=== PATIENT | male | born 1970 | race Caucasian/White ===

== ENCOUNTER 2023-11-04 10:32 | Emergency (ER) | payer MEDICARE, SELFPAY ==
[2023-11-04 10:32] VITALS: BP 155/102; BP 161/105; PULSE 123; PULSE 132; RESP 14; RESP 18; TEMP 36.3; O2SAT 98; BMI 46.6
--- NOTE | 2023-11-04 10:49 | NURSING ---
NO OLD EKGS
--- NOTE | 2023-11-04 11:00 | EKG12_ITS ---
Test Reason : Blood Pressure : / mmHG Vent. Rate : 110 BPM Atrial Rate : 110 BPM P-R Int : 122 ms QRS Dur : 082 ms QT Int : 324 ms P-R-T Axes : 067 082 085 degrees
--- NOTE | 2023-11-04 11:05 | RAD_ITS ---
STUDY: X-RAY CHEST REASON FOR EXAM: Male, 53 years old. Chest pain TECHNIQUE: Single AP portable view of the chest. COMPARISON: None. FINDINGS: EKG electrodes are seen. Hyperinflation. The lungs are clear. There is blunting of the right cardiac phrenic angle. Normal size heart. Normal mediastinum and tonya. Normal visualized pulmonary arteries. Normal visualized aortic arch and descending thoracic aorta. Normal visualized thoracic spine. Normal visualized ribs, clavicles, and shoulders. There is no demonstrated abnormality of the visualized soft tissue structures of the upper abdomen. RAD/Chest 1 View (Portable) IMPRESSION: Hyperinflation. Blunting of the right costophrenic angle. Electronically Signed: Javier Starr MD at 11:25 EDT ,
[2023-11-04 11:07] LABS: Absolute Lymphocyte Count 2.34 X10^3/uL (0.83-4.51); Absolute Neutrophil Count 6.4 X10^3/uL (2.0-7.7); Basophil# 0.03 X10^3/uL; Basophil% 0.3 % (0-1); Eosinophil# 0.05 X10^3/uL; Eosinophils% 0.5 % (0-5); Hematocrit 45.2 % (40-54); Hemoglobin 15.5 g/dL (13.0-16.5); Lymphocyte # 2.34 X10^3/ul (0.83-4.51); Lymphocyte % 23.3 % (19-41); Mean Corp Hgb Conc 34.3 g/dL (32-36); Mean Corpuscular Hgb 32.1 pg (27.0-32.0); Mean Corpuscular Volume 93.6 fL (80-94); Mean Platelet Vol. 8.4 fl (6.2-12.0); Monocyte# 1.17 X10^3/uL; Monocyte% 11.7 % (0-10); NRBC Flagged by Analyzer 0 % (0-5); Neutrophil # 6.41 X10^3/uL (2.7-7.7); Neutrophil % 63.9 % (47-70); Platelet Count 207 K/mm3 (150-450); RBC Distribution Width CV 12.3 % (11.6-14.6); RBC Distribution Width SD 42.6 fl (35.1-43.9); Red Blood Count 4.83 M/mm3 (4.6-6.2)
--- NOTE | 2023-11-04 11:20 | EX.ED.DYSGE1 ---
HPI History of Present Illness Chief Complaint: Hypertension PFSH PFSH Allergy/AdvReac Type Severity Reaction Status Date / Time No Known Allergies Allergy Verified 11/04/23 10:33 Social History Smoking Status: Never smoker EXAM Physical Exam Const Vital Signs: 11/04/23 10:32 11/04/23 10:32 11/04/23 10:47 Temperature 97.3 F L Temperature Source Temporal Pulse Rate 132 H 123 H Respiratory Rate 14 18 Blood Pressure 155/102 H 161/105 H Blood Pressure Mean 119 123 Pulse Ox 98 98 Oxygen Delivery Method Room Air Room Air Room Air MDM MDM Lab Data Labs: Laboratory Results - last 24 hr 11/04/23 10:50 WBC 10.0 RBC 4.83 Hgb 15.5 Hct 45.2 MCV 93.6 MCH 32.1 H MCHC 34.3 RDW Std Deviation 42.6 RDW Coeff of Hilary 12.3 Plt Count 207 MPV 8.4 Immature Gran % (Auto) 0.300 Neut % (Auto) 63.9 Lymph % (Auto) 23.3 [place] % (Auto) 11.7 H Eos % (Auto) 0.5 Baso % (Auto) 0.3 Absolute Neuts (auto) 6.4 Absolute Lymphs (auto) 2.34 Nucleated RBC % 0 Discharge Plan Triage Chief Complaint: Hypertension ED Provider: Deshaun Greenberg Dx/Rx/DC Orders Print Language: [place]
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
--- NOTE | 2023-11-04 11:25 | CT_ITS ---
STUDY: CT BRAIN WITHOUT CONTRAST REASON FOR EXAM: Male, 53 years old. Confusion. History of bipolar disease. RADIATION DOSAGE (If Supplied By Facility): CTDIvol = ( 44.99 ) mGy, DLP = ( 796.11 ) mGycm TECHNIQUE: Transaxial CT imaging of the brain was performed without administration of intravenous contrast material. Individualized dose optimization techniques were used for this CT. COMPARISON: No relevant priors. FINDINGS: Normal soft tissue structures. Normal calvarium. Normal size ventricles and extra-axial spaces for the patient''s age. Normal white matter tracts of the cerebral hemispheres. Is evidence of an old lacunar infarct in the body of the left caudate nucleus. Normal brainstem. Normal cerebellum. There is no intracranial hemorrhage. There are no findings of an acute ischemic infarction. Partial opacification of the left maxillary sinus. CT/Brain/Head without Contrast IMPRESSION: Old lacunar infarct in the body of the left caudate nucleus. Electronically Signed: Javier Starr MD at 12:10 EDT ,
[2023-11-04 11:32] LABS: Anion Gap 11 (5-15); BUN 16 mg/dL (7-18); BUN/Creat Ratio 15.2 RATIO (10-20); Calcium,Total 9.8 mg/dL (8.5-10.1); Chloride 98 mmol/L (98-107); Creatinine, Serum 1.05 mg/dL (0.70-1.30); EST Glomerular Filtration Rate 78 mL/min (>60); Est Glom Filt Rate - Afr Amer 94 mL/min (>60); Glucose 89 mg/dL (74-106); Potassium 3.7 mmol/L (3.5-5.1); Sodium Level 133 mmol/L (136-145); Troponin-I HS 10 pg/mL (3.0-78.0)
[2023-11-04 12:09] LABS: Valproic Acid (Depakene) Level 30 ug/mL (50-100)
[2023-11-04 12:10] LABS: Alcohol, Blood (Medical)-Serum < 3.0 mg/dL
[2023-11-04 12:32] VITALS: BP 131/97; PULSE 100; RESP 16; O2SAT 96
[2023-11-04] MEDS: 0.9% Normal Saline (1000mL) 1,000 ML 999 ML IV (12:48)
[2023-11-04] MEDS: Ziprasidone IM 20 MG/ML VIAL IM ×2 (15:30→20:38)
--- NOTE | 2023-11-04 15:33 | ED.RN ---
This RN moved patient to room 5 to have him closer to nurses station. This RN attempted to get patient changed into gown per policy. Pt. refused and made comments such as do you have enough guns, youre not taking my clothes youre going to need a lot of guns. Pt. continues to speak about things like jt's purpose. POlice and security at bedside. This RN medicated pt. with Geodon per order and pt. willingly took medication. Room is cleared out.
[2023-11-04 16:15] LABS: Amphetamine Urine VISTA NEGATIVE (<1000 ng/mL); Barbiturate Urine VISTA NEGATIVE (< 200 ng/mL); Benzodiazepine Urine VISTA NEGATIVE (< 200 ng/mL); Cocaine Urine VISTA NEGATIVE (< 300 ng/mL); Ecstacy Urine VISTA NEGATIVE (< 500 ng/mL); Methadone Urine VISTA NEGATIVE (< 300 ng/mL); PCP Urine VISTA NEGATIVE (< 25 ng/mL); THC Urine VISTA NEGATIVE (< 50 ng/mL); Vista UDS pH Range 6
--- NOTE | 2023-11-04 16:30 | ED.RN ---
patient removed the rest of his clothes. Clothing was bagged and labeled. Friend that was at bedside left.
[2023-11-04 16:46] VITALS: BP 133/101; PULSE 88; RESP 16; O2SAT 97
--- NOTE | 2023-11-04 17:38 | ED.RN ---
per crisis, pt referred to [facility] [place]. this rn spoke with mother- sanjana high- [phone] and she stated she did not want him to go to anywhere in [place]. I informed her i would pass that along to Crisis that if there were achoice between hospitals they choose not [place]. the admission process and bed availability was explained to mother. request was passed on to Crisis when they called to give update that he was referred to [facility]. They state they have already spoken to Sanjana.
--- NOTE | 2023-11-04 18:19 | NURSING ---
ACCEPTED AT [facility], [address] MONTERROSO NURSE TO NURSE [phone] CAN NOT BE PICKED UP BEFORE 7 AM NOVEMBER 04
--- NOTE | 2023-11-04 18:48 | ED.RN ---
This RN called jackelyn to give her an updated.
[2023-11-04 20:46] VITALS: BP 157/78; PULSE 86; RESP 20; O2SAT 100
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
[2023-11-04] MEDS: LORazepam 2 MG/ML Syringe IM (21:23)
[2023-11-05] VITALS: BP 133/93; PULSE 75; RESP 15; TEMP 36.5; O2SAT 94
[2023-11-05 04:00] VITALS: BP 113/75; PULSE 84; RESP 16; O2SAT 96
--- NOTE | 2023-11-05 05:27 | ED.RN ---
Attempted to call report to accepting facility twice. no answer. Automated voice message
[2023-11-05 07:10] VITALS: BP 113/78; PULSE 71; RESP 18; TEMP 36.6; O2SAT 98
--- NOTE | 2023-11-05 07:20 | ED.RN ---
Pt. leaving with jeans, underwear, slippers, shirt, and cell phone. Nephew took glasses and pt. did not have a wallet.
--- NOTE | 2023-11-05 07:26 | ED.RN ---
Report given to Yoli at [facility]. Physicians taking patient out now.
== END 2023-11-05 07:28 ==
PROVIDERS: Emergency Provider Student in an Organized Health Care Education/Training Program; Visit Provider Student in an Organized Health Care Education/Training Program
DX: F31.9 Bipolar disorder, unspecified (principal); F23 Brief psychotic disorder; I10 Essential (primary) hypertension
CPT/HCPCS: 70450; 71045; 80048; 80164; 80307; 82077; 84484; 85025; 93005; 96360; 96361; 96372; 99285; J7030; J3486